=== PATIENT | male | born 1995 | race Caucasian/White ===

== ENCOUNTER 2016-11-12 13:47 | Emergency (ER) | payer BC, OTHER ==
[~2016-11-12] VITALS: Ht 182.9 cm; Wt 95.3 kg
[2016-11-12] MEDS ORDERED: HYDROcodone/APAP 5 MG/325 MG (LORTAB) TAB PO STA (14:21)
--- NOTE | 2016-11-12 14:44 | Diagnostic Imaging Report ---
INDICATION: Left elbow pain after injury. EXAMINATION: Left elbow dated 11/12/2016 FINDINGS: 3 views of the elbow There is no evidence for joint effusion with no fractures or dislocations appreciated. IMPRESSION: 1. No evidence for acute abnormality. Dictated by: Dictated on workstation # [id number]
--- NOTE | 2016-11-12 15:00 | ED Upper Extremity ---
General Chief Complaint: Upper Extremity Stated Complaint: L ARM INJ Nursing Triage Note: c/o left elbow pain. Pt injured elbow playing rugby. Nursing Sepsis Screen: No Definite Risk History of Present Illness Time seen by provider: 14:15 Initial Comments Evaluation for left elbow pain secondary to fall with outstretched left arm. He was playing rugby at the time of the injury. He denies any previous history of injuries to his left arm. He is right-hand dominant. He has had no pain medicine or anti-inflammatories injury. Onset: just prior to arrival Severity: moderate (pain 7/10) Pain/Injury Location: left elbow Method of Injury: fell Modifying Factors: Improves With Immobilization, Worse With Movement, Improves With Rest Allergies and Home Medications Allergies Coded Allergies: No Known Drug Allergies (Unverified , 11/12/16) Constitutional: no symptoms reported see HPI EENTM: no symptoms reported see HPI Respiratory: no symptoms reported see HPI Cardiovascular: no symptoms reported see HPI Gastrointestinal: no symptoms reported see HPI Genitourinary: no symptoms reported see HPI Musculoskeletal: see HPI joint pain (left elbow) muscle pain (left upper extremity)No neck pain Skin: no symptoms reported see HPI Psychiatric/Neurological: No Symptoms Reported See HPI All Other Systems Reviewed Negative Unless Noted: Yes Past Xvxudku-Onrznp-Rhidjo Hx Patient Social History Alcohol Use: Occasionally Uses Recreational Drug Use: No Smoking Status: Never a Smoker Recent Foreign Travel: No Contact w/Someone Who Travel: No Recent Infectious Disease Expo: No Reviewed Nursing Assessment Reviewed/Agree w Nursing PMH: Yes Physical Exam Vital Signs Vital Sign - Last 12Hours 11/12/16 14:00 Temp 97.2 Pulse 70 Resp 18 B/P 118/70 Pulse Ox 98 Capillary Refill : Less Than 3 Seconds General Appearance: WD/WN no apparent distress HEENT: PERRL/EOMI normal ENT inspection Neck: non-tender full range of motion normal inspection Cardiovascular: normal peripheral pulses regular rate, rhythm no murmur Respiratory: chest non-tender lungs clear Shoulder: normal inspection non-tender no evidence of injury Elbow/Forearm: normal inspection, Left, bone tenderness (generalized left elbow.), limited ROM (secondary to pain), pain, soft tissue tenderness Wrist: Yes normal inspection, Yes non-tender, Yes no evidence of injury, Yes limited ROM (secondary to elbow pain) Hand: normal inspection, non-tender, no evidence of injury, normal ROM Neurologic/Tendon: normal sensation normal motor functions normal tendon functions Neurologic/Psychiatric: no motor/sensory deficits alert oriented x 3 Skin: normal color warm/dry other Lymphatic: no adenopathy Progress/Results/Core Measures Results/Orders My Orders Vital Signs/I&O Blood Pressure Mean: 86 Progress Note : Time: 14:40 Progress Note X-rays reviewed with patient and his mother. No fractures dislocations or acute bony changes noted. Recommended sling for comfort. Diagnostic Imaging Diagonstic Imaging: Xray Plain Films/CT/US/NM/MRI: elbow Comments NAME: HILARY NEWBERRY [facility] REC#: [id number] PT STATUS: REG ER : 1995 PHYSICIAN: ALPESH KRUGER MD ADMIT DATE: 11/12/16/ER Draft Date of Exam:11/12/16 ELBOW, LEFT, 3 VIEWS INDICATION: Left elbow pain after injury. EXAMINATION: Left elbow dated 11/12/2016 FINDINGS: 3 views of the elbow There is no evidence for joint effusion with no fractures or dislocations appreciated. IMPRESSION: 1. No evidence for acute abnormality. Dictated on workstation # [id number] Dict: 11/12/16 1439 Trans: 11/12/16 1444 [facility] [id number] Interpreted by: ALBARO ELLSWORTH MD Electronically signed by: Departure Impression Impression: Primary Impression: Elbow pain, left Additional Impression: Sprain of elbow Qualified Code: S53.402A - Unspecified sprain of left elbow, initial encounter Disposition: 01 HOME, SELF-CARE Condition: Stable Departure-Patient Inst. Decision time for Depature: 14:40 Referrals: NO,LOCAL PHYSICIAN (PCP/Family) Primary Care Physician Patient Instructions: Elbow Sprain (DC), How to Use a Shoulder Sling Add. Discharge Instructions: All discharge instructions reviewed with patient and/or family. Voiced understanding. Ice to left elbow 20 minutes every 2 hours. Sling for comfort, can remove for showering and gentle range of motion to the left elbow. Follow-up at [facility] in 3-4 days if no improvement in symptoms. Can resume a red B1 full range of motion of the left elbow and pain free. Return to emergency department for new or worsening symptoms. Copy Copies To 1: SHA GORE MD, AMY ARNP Nov 12, 2016 15:00 Decision time for Depature: 14:40 Referrals: NO,LOCAL PHYSICIAN (PCP/Family) Primary Care Physician Patient Instructions: Elbow Sprain (DC), How to Use a Shoulder Sling Add. Discharge Instructions: All discharge instructions reviewed with patient and/or family. Voiced understanding. Ice to left elbow 20 minutes every 2 hours. Sling for comfort, can remove for showering and gentle range of motion to the left elbow. Follow-up at [facility] in 3-4 days if no improvement in symptoms. Can resume a red B1 full range of motion of the left elbow and pain free. Return to emergency department for new or worsening symptoms. Copy Copies To 1: SHA GORE MD, AMY ARNP Nov 12, 2016 15:00
[2016-11-12 15:09] VITALS: BP 116/64
== END 2016-11-12 15:09 | disposition home or self-care (01) ==
LOC: ER 13:49
DX: S53.402A Unspecified sprain of left elbow, initial encounter (principal); W03.XXXA Other fall on same level due to collision with another person, initial encounter; Y93.63 Activity, rugby; Y92.328 Other athletic field as the place of occurrence of the external cause; Y99.8 Other external cause status
CPT/HCPCS: 73080; 99283